=== PATIENT | female | born 1975 | race Caucasian/White ===

== ENCOUNTER 2021-06-28 04:34 | Emergency (ER) | payer OTHER ==
[~2021-06-28 04:34] MED LIST: AZIT250 PO; CLON.5 PO; HYDACE5 PO; LEVSOD25 PO; OMEP20ER PO; ONDA4 PO; PRED20 PO; PRENZ
[2021-07-02] MEDS ORDERED: METO50ER PO (05:56)
== END 2021-06-28 06:00 | disposition left against medical advice (07) ==
LOC: ER 04:34
DX: Z53.21 Procedure and treatment not carried out due to patient leaving prior to being seen by health care provider (principal)